=== PATIENT | female | born 1935 | race Caucasian/White ===

== ENCOUNTER → 2016-07-15 | Outpatient (CLI) | payer OTHER ==
[~2016-07-15] VITALS: Ht 152.4 cm; Wt 98.9 kg
[~2016-07-15] MED LIST: ASPIRIN81 M2 PO; ATORVASTATIN CA80 MG PO; BENICAR HCT 401 EAC1 PO; BENICAR HCT 401 EACH PO; BENICAR40 MG PO; CAL-CITRATE PL1 EACH PO; CALCIUM 500 MG1 EACH PO; CHERATUSSIN AC473 ML PO; CLOPIDOGREL75 MG PO; ENDOCET 5-3251 EACH PO; GLUCOTROL XL2.5 MG PO; IRON325 M1 PO; JANUVIA100 MG PO; LASIX20 MG PO; LIPITOR20 MG PO; MAG-AL PLUS SUS30 ML PO; METOPROLOL SUCC25 MG PO; NITROGLYCERIN0.4 MG SL; NITROSTAT0.4 MG SL; OXYCODONE-APAP1 EAC6 PO; PANTOPRAZOLE SO40 MG PO; PROTONIX40 MG PO; TOPROL XL25 MG PO; TYLENOL REGULA325 MG PO; VENTOLIN HFA18 GM IH; VOLTAREN 1% GE100 GM TP
[2016-07-15 15:23] LABS: POINT-OF-CARE METER ID UU13113694
[2016-07-15 15:31] LABS: HEMATOCRIT 36.3 % (36.0-46.0); MCHC 32.2 G/DL (30.0-36.0); MCV 93.1 FL (83-99); MEAN PLAT.VOLUME 8.8 uM^3 (9.5-12.4); PLATELET COUNT 178 K/uL (156-360); RBC DIS.WIDTH-SD 47.3 % (39-53); WHITE BLOOD COUNT 8.4 K/uL (4.1-10.2)
[2016-07-15 15:47] LABS: ANION GAP 7 MEQ/L (2-14); CHLORIDE 107 MEQ/L (99-109); POTASSIUM 4.4 MEQ/L (3.7-5.4); SAMPLE HEMOLYSIS CHECK 0; SAMPLE ICTERIC CHECK 0; SAMPLE LIPEMIA CHECK 0; SODIUM 143 MEQ/L (136-147)
[2016-07-15 15:49] LABS: PROTHROMBIN TIME 10.2 (9.2-11.2)
[2016-07-15 15:53] LABS: GFR ESTIMATE (CALCULATED) > 59 mL/min/; GLUCOSE 113 mg/dL (70-99); UREA NITROGEN (BUN) 14 mg/dL (9-23)
== END | disposition home or self-care (01) ==
LOC: AMB 14:20
PROVIDERS: Internal Medicine Pulmonary Disease
DX: R91.8 Other nonspecific abnormal finding of lung field (principal); Z87.891 Personal history of nicotine dependence; I10 Essential (primary) hypertension; K21.9 Gastro-esophageal reflux disease without esophagitis; E78.5 Hyperlipidemia, unspecified; I25.10 Atherosclerotic heart disease of native coronary artery without angina pectoris; Z80.0 Family history of malignant neoplasm of digestive organs; Z82.49 Family history of ischemic heart disease and other diseases of the circulatory system; Z80.51 Family history of malignant neoplasm of kidney
CPT/HCPCS: 71010; 76001; 80048; 82948; 85027; 85610; 85730; 87070; 87077; 87116; 87147; 87205; 87206; 88108; 88173; 93005; J0131; J1940; J2405; J2710; J2765; J3010

== ENCOUNTER → 2016-08-04 | Outpatient (CLI) | payer OTHER | END | disposition home or self-care (01) | LOC: OPR 08:43 → EDSTATUS 09:00 → OPR 09:00 | PROC: 0BB63ZX Excision of Right Lower Lobe Bronchus, Percutaneous Approach, Diagnostic (ICD-10-PCS; principal; 2016-08-04) | DX: C34.31 Malignant neoplasm of lower lobe, right bronchus or lung (principal); Z87.891 Personal history of nicotine dependence; C51.9 Malignant neoplasm of vulva, unspecified; I10 Essential (primary) hypertension; I25.10 Atherosclerotic heart disease of native coronary artery without angina pectoris; I25.2 Old myocardial infarction; K21.9 Gastro-esophageal reflux disease without esophagitis; E78.5 Hyperlipidemia, unspecified; M19.90 Unspecified osteoarthritis, unspecified site; Z68.41 Body mass index [BMI] 40.0-44.9, adult; Z79.82 Long term (current) use of aspirin; Z80.51 Family history of malignant neoplasm of kidney; Z80.0 Family history of malignant neoplasm of digestive organs; Z82.49 Family history of ischemic heart disease and other diseases of the circulatory system | CPT/HCPCS: 71010; 77012; 88305; 88341 TC; 88342 TC; J3010 ==

== ENCOUNTER 2016-08-24 07:38 | Day surgery (SDC) | payer OTHER ==
[~2016-08-24] VITALS: Ht 152.4 cm; Wt 95.7 kg
[~2016-08-24 07:38] MED LIST changes: +PLAVIX75 MG PO
[2016-08-24 08:30] VITALS: BP 149/63
[2016-08-24 08:49] VITALS: BP 149/63
[2016-08-24 09:25] LABS: POINT-OF-CARE METER ID UU14174212
[2016-08-24 10:59] LABS: POINT-OF-CARE METER ID UU13113675; POINT-OF-CARE USER ID 515036437
[2016-08-24 12:45] VITALS: BP 118/51
[2016-08-24 13:40] VITALS: BP 152/83
== END 2016-08-24 13:59 | disposition home or self-care (01) ==
LOC: SDC
PROVIDERS: Obstetrics & Gynecology Gynecologic Oncology
DX: C51.9 Malignant neoplasm of vulva, unspecified (principal); C34.31 Malignant neoplasm of lower lobe, right bronchus or lung; I10 Essential (primary) hypertension; K21.9 Gastro-esophageal reflux disease without esophagitis; E11.9 Type 2 diabetes mellitus without complications; M85.80 Other specified disorders of bone density and structure, unspecified site; E78.00 Pure hypercholesterolemia, unspecified; Z87.891 Personal history of nicotine dependence; Z79.82 Long term (current) use of aspirin; Z79.02 Long term (current) use of antithrombotics/antiplatelets; Z79.899 Other long term (current) drug therapy; Z82.49 Family history of ischemic heart disease and other diseases of the circulatory system; Z80.51 Family history of malignant neoplasm of kidney; Z80.0 Family history of malignant neoplasm of digestive organs
CPT/HCPCS: 82948; 88307; 94640; J0330; J0690; J1100; J1885; J2405; J3010

== ENCOUNTER 2016-09-16 10:35 | Day surgery (SDC) | payer OTHER ==
[~2016-09-16] VITALS: Ht 152.4 cm; Wt 96.6 kg
[2016-09-16 11:24] VITALS: BP 124/42
[2016-09-16 11:43] LABS: BASOPHIL COUNT 0.1 K/uL (0-0.1); EOSINOPHIL (%) 4.2 % (0-5); EOSINOPHIL COUNT 0.3 K/uL (0-0.3); HEMATOCRIT 36.9 % (36.0-46.0); IMMATURE GRANULOCYTE (%) 1.3 % (0.0-0.7); IMMATURE GRANULOCYTE COUNT 0.1 K/uL; INSTRUMENT ABS NEUTROPHIL CT 4.6 K/uL; LYMPHOCYTE COUNT 0.8 K/uL (1.0-2.8); MCH 30.1 PG (29.0-34.0); MCV 94.1 FL (83-99); MEAN PLAT.VOLUME 8.9 uM^3 (9.5-12.4); MONOCYTE (%) 6.1 % (3-12); MONOCYTE COUNT 0.4 K/uL (0-0.8); NEUTROPHIL (%) 74.9 % (45-76); NEUTROPHIL COUNT 4.6 K/uL (1.8-6.4); PLATELET COUNT 214 K/uL (156-360); RBC DIS.WIDTH-SD 44.9 % (39-53); RED BLOOD COUNT 3.92 M/uL (3.80-5.20); WHITE BLOOD COUNT 6.2 K/uL (4.1-10.2)
[2016-09-16 11:58] LABS: ANION GAP 11 MEQ/L (2-14); CHLORIDE 106 MEQ/L (99-109); POTASSIUM 4.4 MEQ/L (3.7-5.4); SAMPLE HEMOLYSIS CHECK 0; SAMPLE ICTERIC CHECK 0; SAMPLE LIPEMIA CHECK 0; SODIUM 141 MEQ/L (136-147); TOTAL BILIRUBIN 0.5 MG/DL (0.0-1.0)
[2016-09-16 11:59] LABS: PROTHROMBIN TIME 10.2 (9.2-11.2)
[2016-09-16 12:04] LABS: ALKALINE PHOSPHATASE 115 IU/L (3-129); GFR ESTIMATE (CALCULATED) 57 mL/min/; GLUCOSE 122 mg/dL (70-99); UREA NITROGEN (BUN) 15 mg/dL (9-23)
[2016-09-16] MEDS ORDERED: COLACE100 MG PO (14:21)
[2016-09-16] MEDS ORDERED: HYDROCODON-ACE1 EAC7 PO (14:21)
[2016-09-16 14:48] LABS: POINT-OF-CARE METER ID UU13113675
[2016-09-16 15:35] VITALS: BP 154/70
[2016-09-16 16:35] VITALS: BP 139/73
== END 2016-09-16 16:35 | disposition home or self-care (01) ==
LOC: SDC 10:35
PROVIDERS: Thoracic Surgery (Cardiothoracic Vascular Surgery)
DX: C34.90 Malignant neoplasm of unspecified part of unspecified bronchus or lung (principal); I10 Essential (primary) hypertension; E11.69 Type 2 diabetes mellitus with other specified complication; I25.10 Atherosclerotic heart disease of native coronary artery without angina pectoris; Z95.5 Presence of coronary angioplasty implant and graft; I25.2 Old myocardial infarction; Z85.44 Personal history of malignant neoplasm of other female genital organs; Z87.891 Personal history of nicotine dependence; Z85.89 Personal history of malignant neoplasm of other organs and systems; Z82.49 Family history of ischemic heart disease and other diseases of the circulatory system; Z84.1 Family history of disorders of kidney and ureter; Z80.51 Family history of malignant neoplasm of kidney
CPT/HCPCS: 80053; 82948; 85025; 85610; 86900; 86901; 87070; 87205; 88108; 88305; J0690; J1100; J1170; J2405; J2710; J2765; J3010

== ENCOUNTER 2016-09-24 05:31 | Inpatient (IN) | payer OTHER ==
[~2016-09-24] VITALS: Ht 152.4 cm; Wt 96.0 kg
[~2016-09-24 05:31] MED LIST changes: +COLACE100 MG PO; +HYDROCODON-ACE1 EAC7 PO
[2016-09-24 05:53] VITALS: BP 136/56
[2016-09-24 06:38] LABS: CHLORIDE 107 mEq/L (99-109); POTASSIUM 4.5 mEq/L (3.7-5.4); SODIUM 141 mEq/L (136-147)
[2016-09-24 06:40] LABS: GLUCOSE 155 mg/dL (70-99)
[2016-09-24 06:41] LABS: BASOPHIL COUNT 0.1 K/uL (0-0.1); EOSINOPHIL (%) 4.5 % (0-5); EOSINOPHIL COUNT 0.3 K/uL (0-0.3); HEMATOCRIT 33.8 % (36.0-46.0); IMMATURE GRANULOCYTE (%) 1.3 % (0.0-0.7); IMMATURE GRANULOCYTE COUNT 0.1 K/uL; INSTRUMENT ABS NEUTROPHIL CT 5.2 K/uL; LYMPHOCYTE COUNT 0.8 K/uL (1.0-2.8); MCH 30.2 PG (29.0-34.0); MCV 94.4 FL (83-99); MEAN PLAT.VOLUME 8.8 uM^3 (9.5-12.4); MONOCYTE (%) 6.8 % (3-12); MONOCYTE COUNT 0.5 K/uL (0-0.8); NEUTROPHIL (%) 75.3 % (45-76); NEUTROPHIL COUNT 5.2 K/uL (1.8-6.4); PLATELET COUNT 180 K/uL (156-360); RBC DIS.WIDTH-CV 12.8 % (11.8-14.6); RBC DIS.WIDTH-SD 44.2 % (39-53); RED BLOOD COUNT 3.58 M/uL (3.80-5.20)
[2016-09-24 06:42] LABS: ANION GAP 9 MEQ/L (2-14); TOTAL BILIRUBIN 0.3 mg/dL (0.0-1.0)
[2016-09-24 06:44] LABS: ALKALINE PHOSPHATASE 109 IU/L (3-129); GFR ESTIMATE (CALCULATED) > 59 mL/min/
[2016-09-24 06:45] LABS: UREA NITROGEN (BUN) 17 mg/dL (9-23)
[2016-09-24 11:25] LABS: POINT-OF-CARE METER ID UU13113675
[2016-09-24 17:52] LABS: POINT-OF-CARE METER ID UU13113675
[2016-09-24 20:46] LABS: POINT-OF-CARE METER ID UU13113803
[2016-09-24 21:32] LABS: METH RESISTANT S AUREUS PCR NEGATIVE (NEGATIVE)
[2016-09-24 21:33] LABS: PROBE CHECK PASS; SPECIMEN PROCESSING CONTROL PASS
[2016-09-25 08:00] VITALS: BP 119/50
[2016-09-25 08:02] LABS: HEMATOCRIT 27.4 % (36.0-46.0); MCH 30.5 PG (29.0-34.0); MCHC 31.8 G/DL (30.0-36.0); MCV 96.1 FL (83-99); PLATELET COUNT 166 K/uL (156-360); RBC DIS.WIDTH-CV 12.6 % (11.8-14.6); RBC DIS.WIDTH-SD 43.9 % (39-53); WHITE BLOOD COUNT 12.9 K/uL (4.1-10.2)
[2016-09-25 08:03] LABS: RED BLOOD COUNT 2.85 M/uL (3.80-5.20)
[2016-09-25 08:23] LABS: ANION GAP 8 MEQ/L (2-14); CHLORIDE 102 MEQ/L (99-109); GFR ESTIMATE (CALCULATED) 51 mL/min/; GLUCOSE 150 mg/dL (70-99); POTASSIUM 4.7 MEQ/L (3.7-5.4); SAMPLE HEMOLYSIS CHECK 0; SAMPLE ICTERIC CHECK 0; SAMPLE LIPEMIA CHECK 0; UREA NITROGEN (BUN) 22 mg/dL (9-23)
[2016-09-25 08:24] LABS: SODIUM 133 MEQ/L (136-147)
[2016-09-25 12:00] VITALS: BP 136/35
[2016-09-25 12:08] LABS: POINT-OF-CARE METER ID UU14174217
[2016-09-25 13:04] LABS: TROP-I INTERPRETATION NEGATIVE
[2016-09-25 17:00] VITALS: BP 136/41
[2016-09-25 17:00] LABS: POINT-OF-CARE METER ID UU14174217
[2016-09-25 19:00] VITALS: BP 139/45
[2016-09-25 21:00] VITALS: BP 137/47
[2016-09-25 22:17] LABS: POINT-OF-CARE METER ID UU14174217
[2016-09-25 23:00] VITALS: BP 135/51
[2016-09-26] VITALS (8 sets, daily range): BP systolic 127–156; BP diastolic 42–55
[2016-09-26 05:23] LABS: HEMATOCRIT 28.9 % (36.0-46.0); MCH 29.1 PG (29.0-34.0); MCHC 30.4 G/DL (30.0-36.0); MCV 95.7 FL (83-99); MEAN PLAT.VOLUME 9.1 uM^3 (9.5-12.4); PLATELET COUNT 179 K/uL (156-360); RBC DIS.WIDTH-CV 12.8 % (11.8-14.6); RBC DIS.WIDTH-SD 44.5 % (39-53); RED BLOOD COUNT 3.02 M/uL (3.80-5.20); WHITE BLOOD COUNT 11.2 K/uL (4.1-10.2)
[2016-09-26 08:15] LABS: POINT-OF-CARE METER ID UU13113748
[2016-09-26 11:15] LABS: POINT-OF-CARE METER ID UU13113748
[2016-09-27] VITALS (16 sets, daily range): BP systolic 103–157; BP diastolic 32–63
[2016-09-27 05:16] LABS: HEMATOCRIT 25.8 % (36.0-46.0); MCH 30.4 PG (29.0-34.0); MCHC 32.6 G/DL (30.0-36.0); MCV 93.5 FL (83-99); MEAN PLAT.VOLUME 9.3 uM^3 (9.5-12.4); PLATELET COUNT 187 K/uL (156-360); RBC DIS.WIDTH-CV 12.9 % (11.8-14.6); RBC DIS.WIDTH-SD 43.8 % (39-53); RED BLOOD COUNT 2.76 M/uL (3.80-5.20); WHITE BLOOD COUNT 10.1 K/uL (4.1-10.2)
[2016-09-27 06:04] LABS: ANION GAP 4 MEQ/L (2-14); CHLORIDE 103 MEQ/L (99-109); GFR ESTIMATE (CALCULATED) > 59 mL/min/; GLUCOSE 127 mg/dL (70-99); POTASSIUM 4.8 MEQ/L (3.7-5.4); SAMPLE HEMOLYSIS CHECK 0; SAMPLE ICTERIC CHECK 0; SAMPLE LIPEMIA CHECK 0; SODIUM 138 MEQ/L (136-147); UREA NITROGEN (BUN) 18 mg/dL (9-23)
[2016-09-27 07:51] LABS: POINT-OF-CARE USER ID 606021424
[2016-09-28] VITALS (17 sets, daily range): BP systolic 0–145; BP diastolic 0–66
[2016-09-28 09:04] LABS: POINT-OF-CARE METER ID UU14162636; POINT-OF-CARE USER ID 612031313
[2016-09-28 12:26] LABS: POINT-OF-CARE METER ID UU14162636; POINT-OF-CARE USER ID 612031313
[2016-09-28 18:06] LABS: POINT-OF-CARE METER ID UU13113803; POINT-OF-CARE USER ID 612031313
[2016-09-28 23:22] LABS: POINT-OF-CARE METER ID UU13113731
[2016-09-29] VITALS (18 sets, daily range): BP systolic 61–143; BP diastolic 31–57
[2016-09-29 09:30] LABS: POINT-OF-CARE METER ID UU14174217
[2016-09-29 13:17] LABS: POINT-OF-CARE METER ID UU13113731
[2016-09-29] MEDS ORDERED: DOCUSATE SODIU100 MG PO (18:13)
[2016-09-29] MEDS ORDERED: DIGOXIN125 MCG PO (18:13)
[2016-09-29 18:41] LABS: POINT-OF-CARE METER ID UU14174217
[2016-09-29 23:23] LABS: POINT-OF-CARE METER ID UU14162636
[2016-09-30] VITALS (10 sets, daily range): BP systolic 113–171; BP diastolic 37–64
[2016-09-30 05:59] LABS: ANION GAP 7 MEQ/L (2-14); CHLORIDE 103 MEQ/L (99-109); GFR ESTIMATE (CALCULATED) > 59 mL/min/; GLUCOSE 119 mg/dL (70-99); POTASSIUM 4.3 MEQ/L (3.7-5.4); SAMPLE HEMOLYSIS CHECK 1; SAMPLE ICTERIC CHECK 0; SAMPLE LIPEMIA CHECK 0; SODIUM 139 MEQ/L (136-147); UREA NITROGEN (BUN) 24 mg/dL (9-23)
[2016-09-30 06:09] LABS: HEMATOCRIT 25.8 % (36.0-46.0); MCH 30.4 PG (29.0-34.0); MCHC 32.6 G/DL (30.0-36.0); MCV 93.5 FL (83-99); MEAN PLAT.VOLUME 8.6 uM^3 (9.5-12.4); RBC DIS.WIDTH-SD 44.3 % (39-53); RED BLOOD COUNT 2.76 M/uL (3.80-5.20); WHITE BLOOD COUNT 10.5 K/uL (4.1-10.2)
[2016-09-30 06:10] LABS: PLATELET COUNT 260 K/uL (156-360)
== END 2016-09-30 16:38 | disposition home health service (06) | DRG 164 ==
LOC: 2SOUTH 05:31 → 4WEST 05:31 → EDSTATUS 09:05 → 2SOUTH 09:06 → SDC 14:31 → 4WEST 19:08
PROVIDERS: Surgery; Thoracic Surgery (Cardiothoracic Vascular Surgery)
DX: C34.31 Malignant neoplasm of lower lobe, right bronchus or lung (principal); Z68.41 Body mass index [BMI] 40.0-44.9, adult; E11.9 Type 2 diabetes mellitus without complications; D72.829 Elevated white blood cell count, unspecified; E78.5 Hyperlipidemia, unspecified; E66.9 Obesity, unspecified
CPT/HCPCS: 71010; 71020; 80048; 80053; 82948; 83735; 84100; 84484; 85025; 85027; 85610; 86900; 86901; 86920; 87641; 88300; 88305; 88309; 88313; 93005; 94002; 94640; 94640 76; 94667; 94668; 94760; 94799; 97530 GO; 97530 GP; 99202; J0131; J0690; J1100; J1160; J1200; J1644; J1815; J1885; J2250; J2405; J2710; J2765; J3010; J7040; J7050; J7120; P9045; S0020

== ENCOUNTER 2017-03-04 04:58 | Inpatient (IN) | payer OTHER ==
[~2017-03-04] VITALS: Ht 152.4 cm; Wt 94.9 kg
[~2017-03-04 04:58] MED LIST changes: +DIGOXIN125 MCG PO; +DOCUSATE SODIU100 MG PO
[2017-03-04 05:56] LABS: HEMATOCRIT 30.7 % (36.0-46.0); MCH 26.4 PG (29.0-34.0); MCHC 30.3 G/DL (30.0-36.0); MCV 87.2 FL (83-99); MEAN PLAT.VOLUME 8.9 uM^3 (9.5-12.4); PLATELET COUNT 224 K/uL (156-360); RBC DIS.WIDTH-CV 15.7 % (11.8-14.6); RBC DIS.WIDTH-SD 49.3 % (39-53); RED BLOOD COUNT 3.52 M/uL (3.80-5.20); WHITE BLOOD COUNT 7.5 K/uL (4.1-10.2)
[2017-03-04 06:06] LABS: ANION GAP 8 MEQ/L (2-14); CHLORIDE 111 MEQ/L (99-109); POTASSIUM 4.2 MEQ/L (3.7-5.4); SAMPLE HEMOLYSIS CHECK 0; SAMPLE ICTERIC CHECK 0; SAMPLE LIPEMIA CHECK 0; SODIUM 144 MEQ/L (136-147)
[2017-03-04 06:09] LABS: TOTAL BILIRUBIN 0.3 MG/DL (0.0-1.0)
[2017-03-04 06:11] LABS: ALKALINE PHOSPHATASE 97 IU/L (3-129); GFR ESTIMATE (CALCULATED) 56 mL/min/; GLUCOSE 108 mg/dL (70-99); UREA NITROGEN (BUN) 22 mg/dL (9-23)
[2017-03-04 07:36] LABS: HEMATOCRIT 30.1 % (36.0-46.0); MCV 86.7 FL (83-99)
[2017-03-04] MEDS ORDERED: CALCIUM 600 +1 EAC9 PO (08:55)
[2017-03-04] MEDS ORDERED: CLOTRIMAZOLE-BE15 GM TP (08:58)
[2017-03-04] MEDS ORDERED: TIZANIDINE HCL4 MG PO (08:58)
[2017-03-04 10:50] VITALS: BP 175/70
[2017-03-04 15:20] VITALS: BP 169/66
[2017-03-04 16:44] LABS: POINT-OF-CARE METER ID UU14314084
[2017-03-04 19:40] VITALS: BP 137/61
[2017-03-04 23:15] VITALS: BP 110/53
[2017-03-05 02:40] LABS: POINT-OF-CARE METER ID UU14162508
[2017-03-05 03:03] VITALS: BP 115/59
[2017-03-05 05:34] LABS: POINT-OF-CARE METER ID UU14162508
[2017-03-05 06:18] LABS: HEMATOCRIT 28.6 % (36.0-46.0); MCH 26.7 PG (29.0-34.0); MCHC 30.1 G/DL (30.0-36.0); MCV 88.8 FL (83-99); MEAN PLAT.VOLUME 9.3 uM^3 (9.5-12.4); PLATELET COUNT 185 K/uL (156-360); RBC DIS.WIDTH-CV 15.6 % (11.8-14.6); RBC DIS.WIDTH-SD 50.5 % (39-53); RED BLOOD COUNT 3.22 M/uL (3.80-5.20); WHITE BLOOD COUNT 5.8 K/uL (4.1-10.2)
[2017-03-05 06:20] LABS: PROTHROMBIN TIME 11.9 SEC (10.2-12.9)
[2017-03-05 06:23] LABS: PTT 28.8 SEC (25-37)
[2017-03-05 07:08] LABS: ALKALINE PHOSPHATASE 86 IU/L (3-129); ANION GAP 6 MEQ/L (2-14); CHLORIDE 108 MEQ/L (99-109); GFR ESTIMATE (CALCULATED) 51 mL/min/; GLUCOSE 122 mg/dL (70-99); POTASSIUM 4.5 MEQ/L (3.7-5.4); SAMPLE HEMOLYSIS CHECK 0; SAMPLE ICTERIC CHECK 0; SAMPLE LIPEMIA CHECK 0; SODIUM 141 MEQ/L (136-147); UREA NITROGEN (BUN) 16 mg/dL (9-23)
[2017-03-05 07:10] LABS: TOTAL BILIRUBIN 0.2 MG/DL (0.0-1.0)
[2017-03-05 07:57] VITALS: BP 127/58
[2017-03-05 11:51] VITALS: BP 125/56
[2017-03-05 11:51] LABS: POINT-OF-CARE METER ID UU14208750
[2017-03-05 17:15] VITALS: BP 141/66
[2017-03-05 17:20] LABS: POINT-OF-CARE METER ID UU14208750
[2017-03-05 19:51] VITALS: BP 119/66
[2017-03-06 00:06] VITALS: BP 123/53
[2017-03-06 00:14] LABS: POINT-OF-CARE METER ID UU14208750
[2017-03-06 06:04] LABS: POINT-OF-CARE METER ID UU14208750
[2017-03-06 06:40] LABS: HEMATOCRIT 28.4 % (36.0-46.0); MCHC 30.3 G/DL (30.0-36.0); MCV 89.3 FL (83-99); MEAN PLAT.VOLUME 9.2 uM^3 (9.5-12.4); PLATELET COUNT 186 K/uL (156-360); RBC DIS.WIDTH-CV 15.5 % (11.8-14.6); RBC DIS.WIDTH-SD 50.9 % (39-53); RED BLOOD COUNT 3.18 M/uL (3.80-5.20); WHITE BLOOD COUNT 6.4 K/uL (4.1-10.2)
[2017-03-06 07:06] LABS: ANION GAP 8 MEQ/L (2-14); CHLORIDE 106 MEQ/L (99-109); GFR ESTIMATE (CALCULATED) 51 mL/min/; GLUCOSE 127 mg/dL (70-99); POTASSIUM 4.8 MEQ/L (3.7-5.4); SAMPLE HEMOLYSIS CHECK 0; SAMPLE ICTERIC CHECK 0; SAMPLE LIPEMIA CHECK 0; SODIUM 141 MEQ/L (136-147); UREA NITROGEN (BUN) 22 mg/dL (9-23)
[2017-03-06 07:28] VITALS: BP 147/65
[2017-03-06 12:04] LABS: POINT-OF-CARE METER ID UU14208750
[2017-03-06 15:29] VITALS: BP 121/56
[2017-03-06 16:40] LABS: POINT-OF-CARE METER ID UU14162508
[2017-03-07] VITALS (14 sets, daily range): BP systolic 97–159; BP diastolic 48–78
[2017-03-07 00:55] LABS: POINT-OF-CARE METER ID UU14208750
[2017-03-07 05:43] LABS: POINT-OF-CARE METER ID UU14208750
[2017-03-07 06:29] LABS: HEMATOCRIT 28.6 % (36.0-46.0); MCH 26.5 PG (29.0-34.0); MCHC 30.1 G/DL (30.0-36.0); MCV 88.3 FL (83-99); PLATELET COUNT 186 K/uL (156-360); RBC DIS.WIDTH-CV 15.6 % (11.8-14.6); RED BLOOD COUNT 3.24 M/uL (3.80-5.20); WHITE BLOOD COUNT 6.8 K/uL (4.1-10.2)
[2017-03-07 06:46] LABS: ANION GAP 7 MEQ/L (2-14); CHLORIDE 106 MEQ/L (99-109); GFR ESTIMATE (CALCULATED) 46 mL/min/; GLUCOSE 105 mg/dL (70-99); SAMPLE HEMOLYSIS CHECK 1; SAMPLE ICTERIC CHECK 0; SAMPLE LIPEMIA CHECK 0; SODIUM 141 MEQ/L (136-147); UREA NITROGEN (BUN) 24 mg/dL (9-23)
[2017-03-07 12:34] LABS: POINT-OF-CARE METER ID UU14162508
[2017-03-07 16:08] LABS: HEMATOCRIT 31.8 % (36.0-46.0); MCH 27.9 PG (29.0-34.0); MCHC 31.8 G/DL (30.0-36.0); MCV 87.8 FL (83-99); MEAN PLAT.VOLUME 8.8 uM^3 (9.5-12.4); PLATELET COUNT 195 K/uL (156-360); RBC DIS.WIDTH-CV 15.2 % (11.8-14.6); RBC DIS.WIDTH-SD 48.7 % (39-53); RED BLOOD COUNT 3.62 M/uL (3.80-5.20); WHITE BLOOD COUNT 9.2 K/uL (4.1-10.2)
[2017-03-07 16:34] LABS: ANION GAP 8 MEQ/L (2-14); CHLORIDE 104 MEQ/L (99-109); GFR ESTIMATE (CALCULATED) 42 mL/min/; POTASSIUM 4.5 MEQ/L (3.7-5.4); SAMPLE HEMOLYSIS CHECK 0; SAMPLE ICTERIC CHECK 0; SAMPLE LIPEMIA CHECK 0; SODIUM 140 MEQ/L (136-147); UREA NITROGEN (BUN) 24 mg/dL (9-23)
[2017-03-07 16:35] LABS: GLUCOSE 74 mg/dL (70-99)
[2017-03-07 23:43] LABS: POINT-OF-CARE METER ID UU14162508
[2017-03-08 03:49] VITALS: BP 147/62
[2017-03-08 05:41] LABS: POINT-OF-CARE METER ID UU14208750
[2017-03-08 06:05] LABS: HEMATOCRIT 34.3 % (36.0-46.0); MCH 27.4 PG (29.0-34.0); MCHC 31.2 G/DL (30.0-36.0); MCV 87.7 FL (83-99); PLATELET COUNT 181 K/uL (156-360); RBC DIS.WIDTH-CV 14.9 % (11.8-14.6); RBC DIS.WIDTH-SD 48.1 % (39-53); RED BLOOD COUNT 3.91 M/uL (3.80-5.20); WHITE BLOOD COUNT 8.2 K/uL (4.1-10.2)
[2017-03-08 06:31] LABS: ANION GAP 6 MEQ/L (2-14); CHLORIDE 105 MEQ/L (99-109); GFR ESTIMATE (CALCULATED) 42 mL/min/; POTASSIUM 4.8 MEQ/L (3.7-5.4); SAMPLE HEMOLYSIS CHECK 0; SAMPLE ICTERIC CHECK 0; SAMPLE LIPEMIA CHECK 0; SODIUM 140 MEQ/L (136-147); UREA NITROGEN (BUN) 27 mg/dL (9-23)
[2017-03-08 06:32] LABS: GLUCOSE 120 mg/dL (70-99)
[2017-03-08 07:31] VITALS: BP 139/64
[2017-03-08 11:56] LABS: POINT-OF-CARE METER ID UU14162508
[2017-03-08 12:27] VITALS: BP 132/61
== END 2017-03-08 12:49 | disposition home or self-care (01) | DRG 746 ==
LOC: EME 04:58 → 2EAST 07:50 → EDOF 07:50 → ENRESERV 08:02 → EDOF 08:13 → ENRESERV 09:50 → 2EAST 10:37
PROVIDERS: Emergency Medicine Emergency Medical Services; Nurse Practitioner Acute Care; Obstetrics & Gynecology Gynecologic Oncology
DX: C51.9 Malignant neoplasm of vulva, unspecified (principal); Z68.41 Body mass index [BMI] 40.0-44.9, adult; E66.9 Obesity, unspecified; E11.9 Type 2 diabetes mellitus without complications; I25.2 Old myocardial infarction; I10 Essential (primary) hypertension; D64.9 Anemia, unspecified; Z95.5 Presence of coronary angioplasty implant and graft; Z85.118 Personal history of other malignant neoplasm of bronchus and lung; Z87.891 Personal history of nicotine dependence
CPT/HCPCS: 80048; 80048 91; 80053; 81003; 82948; 85014; 85018; 85027; 85610; 85730; 86850; 86900; 86901; 86920; 88307; 94760; 99202; 99281; 99285; J0330; J0690; J1815; J1885; J2405; J3010; J7030; P9016; Q0177

== ENCOUNTER → 2017-04-18 | Outpatient (CLI) | payer OTHER ==
[~2017-04-18] MED LIST changes: +CALCIUM 600 +1 EAC9 PO; +CLOTRIMAZOLE-BE15 GM TP; +TIZANIDINE HCL4 MG PO
[2017-04-18 09:26] LABS: INTER. NORMALIZED RATIO 1.1
[2017-04-18 09:29] LABS: PTT 30.3 SEC (25-37)
== END | disposition home or self-care (01) ==
LOC: OPR 04-13 10:00 → EDSTATUS 09:00 → OPR 04-20 09:00
PROVIDERS: Internal Medicine Hematology & Oncology
PROC: 0FB13ZX Excision of Right Lobe Liver, Percutaneous Approach, Diagnostic (ICD-10-PCS; principal; 2017-04-18)
DX: C78.7 Secondary malignant neoplasm of liver and intrahepatic bile duct (principal); Z85.118 Personal history of other malignant neoplasm of bronchus and lung; Z87.891 Personal history of nicotine dependence
CPT/HCPCS: 74176; 77012; 85610; 85730; 88307; 88341 TC; 88342 TC; J3010

== ENCOUNTER 2017-05-31 15:51 | Emergency (ER) | payer OTHER ==
[~2017-05-31] VITALS: Ht 154.9 cm; Wt 94.4 kg
[~2017-05-31 15:51] MED LIST changes: -ASPIRIN81 M2 PO; +COMPAZINE10 MG PO; +FLEXERIL5 MG PO; +LO-DOSE ASPIRIN81 M1 PO; +OXYCODONE HCL10 MG PO
[2017-05-31 16:17] LABS: HEMOGLOBIN 11.1 G/DL (11.9-15.5); MCH 28.9 PG (29.0-34.0); MCHC 32.6 G/DL (30.0-36.0); MCV 88.5 FL (83-99); PLATELET COUNT 175 K/uL (156-360); RBC DIS.WIDTH-CV 14.1 % (11.8-14.6); RBC DIS.WIDTH-SD 44.8 % (39-53); RED BLOOD COUNT 3.84 M/uL (3.80-5.20); WHITE BLOOD COUNT 8.4 K/uL (4.1-10.2)
[2017-05-31 16:29] LABS: CHLORIDE 105 mEq/L (99-109); POTASSIUM 4.9 mEq/L (3.7-5.4); SODIUM 138 mEq/L (136-147)
[2017-05-31 16:31] LABS: GLUCOSE 163 mg/dL (70-99)
[2017-05-31 16:33] LABS: TOTAL BILIRUBIN 0.7 mg/dL (0.0-1.0)
[2017-05-31 16:35] LABS: ALKALINE PHOSPHATASE 95 IU/L (3-129); GFR ESTIMATE (CALCULATED) 56 mL/min/
[2017-05-31 16:36] LABS: UREA NITROGEN (BUN) 15 mg/dL (9-23)
[2017-05-31 16:37] LABS: AST (GOT) 15 IU/L (2-34)
[2017-05-31 16:38] LABS: ALT (GPT) 16 IU/L (3-49)
[2017-05-31 18:59] LABS: LIPASE 11 U/L (1.0-51.0)
[2017-05-31 19:14] LABS: APPEARANCE CLOUDY ((CLEAR)); BILIRUBIN NEGATIVE; BLOOD SMALL; GLUCOSE (STRIP) NEGATIVE; KETONES NEGATIVE; LEUKOCYTES LARGE; NITRITE POSITIVE; PROTEIN (STRIP) 100; SPECIFIC GRAVITY 1.018 (1.000-1.030); UROBILINOGEN 0.2 MG/DL (0.2-1.0)
[2017-05-31 19:30] LABS: COLOR YELLOW ((YELLOW))
[2017-05-31 20:10] LABS: EPITHELIAL CELLS 2+ /HPF; RED BLOOD CELLS 0-5 /HPF (0-5); WHITE BLOOD CELLS 40-50 /HPF (0-5)
[2017-05-31 20:11] LABS: BACTERIA 2+ /HPF; MUCUS NONE SEEN /LPF; UCUL ADDED? YES
[2017-05-31 20:12] LABS: HYALINE CASTS 0-5 /LPF
[2017-05-31] MEDS ORDERED: ZOFRAN ODT8 MG PO (21:10)
[2017-05-31] MEDS ORDERED: KEFLEX500 MG PO (21:10)
[2017-05-31] MEDS ORDERED: MOTRIN600 MG PO (21:10)
[2017-05-31 21:33] VITALS: BP 137/64
[2017-06-01] MEDS ORDERED: OMEPRAZOLE40 M1 PO (17:23)
[2017-06-01] MEDS ORDERED: DULERA 200 MCG/13 GM IH (17:24)
== END 2017-05-31 21:36 | disposition home or self-care (01) ==
LOC: EME 15:51
DX: N39.0 Urinary tract infection, site not specified (principal); R11.2 Nausea with vomiting, unspecified; C22.9 Malignant neoplasm of liver, not specified as primary or secondary; Z79.899 Other long term (current) drug therapy; Z85.44 Personal history of malignant neoplasm of other female genital organs; I25.2 Old myocardial infarction; Z95.5 Presence of coronary angioplasty implant and graft; Z87.891 Personal history of nicotine dependence; Z86.73 Personal history of transient ischemic attack (TIA), and cerebral infarction without residual deficits; Z79.82 Long term (current) use of aspirin; Z91.041 Radiographic dye allergy status
CPT/HCPCS: 74176; 80053; 81003; 83605; 83690; 85027; 87040; 87077; 87086; 87186; 87801; 99281; 99284; J0696; J3010; J7120

== ENCOUNTER 2017-06-01 16:08 | Inpatient (IN) | payer OTHER ==
[~2017-06-01] VITALS: Ht 152.4 cm; Wt 94.2 kg
[~2017-06-01 16:08] MED LIST changes: +KEFLEX500 MG PO; +MOTRIN600 MG PO; +ZOFRAN ODT8 MG PO
[2017-06-01 17:15] LABS: BASOPHIL (%) 0.8 % (0-1); EOSINOPHIL (%) 1.4 % (0-5); EOSINOPHIL COUNT 0.1 K/uL (0-0.3); HEMATOCRIT 30.3 % (36.0-46.0); HEMOGLOBIN 9.8 G/DL (11.9-15.5); IMMATURE GRANULOCYTE (%) 1.2 % (0.0-0.7); LYMPHOCYTE (%) 4.9 % (15-42); LYMPHOCYTE COUNT 0.2 K/uL (1.0-2.8); MCHC 32.3 G/DL (30.0-36.0); MCV 89.6 FL (83-99); MONOCYTE (%) 7.3 % (3-12); MONOCYTE COUNT 0.4 K/uL (0-0.8); NEUTROPHIL (%) 84.4 % (45-76); NEUTROPHIL COUNT 4.2 K/uL (1.8-6.4); PLATELET COUNT 152 K/uL (156-360); RBC DIS.WIDTH-CV 14.4 % (11.8-14.6); RBC DIS.WIDTH-SD 45.2 % (39-53); RED BLOOD COUNT 3.38 M/uL (3.80-5.20); WHITE BLOOD COUNT 4.9 K/uL (4.1-10.2)
[2017-06-01 17:23] LABS: CHLORIDE 105 mEq/L (99-109); SODIUM 137 mEq/L (136-147)
[2017-06-01] MEDS ORDERED: OMEPRAZOLE40 M1 PO (17:23)
[2017-06-01] MEDS ORDERED: DULERA 200 MCG/13 GM IH (17:24)
[2017-06-01 17:25] LABS: GLUCOSE 178 mg/dL (70-99)
[2017-06-01 17:28] LABS: CREATININE 1.1 mg/dL (0.6-1.3); GFR ESTIMATE (CALCULATED) 51 mL/min/
[2017-06-01 17:29] LABS: UREA NITROGEN (BUN) 20 mg/dL (9-23)
[2017-06-01 20:30] VITALS: BP 127/61
[2017-06-02] VITALS (7 sets, daily range): BP systolic 110–141; BP diastolic 56–87
[2017-06-03 03:50] VITALS: BP 136/64
[2017-06-03 07:23] VITALS: BP 145/65
[2017-06-03 11:00] LABS: HEMATOCRIT 27.6 % (36.0-46.0); HEMOGLOBIN 8.7 G/DL (11.9-15.5); MCH 28.7 PG (29.0-34.0); MCHC 31.5 G/DL (30.0-36.0); MCV 91.1 FL (83-99); PLATELET COUNT 131 K/uL (156-360); RBC DIS.WIDTH-CV 14.6 % (11.8-14.6); RBC DIS.WIDTH-SD 47.8 % (39-53); RED BLOOD COUNT 3.03 M/uL (3.80-5.20); WHITE BLOOD COUNT 2.6 K/uL (4.1-10.2)
[2017-06-03 11:31] LABS: CHLORIDE 107 MEQ/L (99-109); CREATININE 0.7 MG/DL (0.6-1.3); GFR ESTIMATE (CALCULATED) > 59 mL/min/; GLUCOSE 148 mg/dL (70-99); SODIUM 137 MEQ/L (136-147); UREA NITROGEN (BUN) 9 mg/dL (9-23)
[2017-06-03 11:38] VITALS: BP 127/59
[2017-06-03 13:31] LABS: ALBUMIN 3.1 G/DL (3.2-4.8); ALKALINE PHOSPHATASE 57 IU/L (3-129); ALT (GPT) 11 IU/L (3-49); AST (GOT) 12 IU/L (2-34); PHOSPHORUS 1.7 mg/dL (2.5-4.9); TOTAL BILIRUBIN 0.2 MG/DL (0.0-1.0); TOTAL PROTEIN 5.1 G/DL (6.4-8.3)
[2017-06-03 14:37] LABS: INTACT PARATHYROID HORMONE 441 pg/mL (10-69)
[2017-06-03 15:44] VITALS: BP 127/60
[2017-06-03 20:21] VITALS: BP 142/65
[2017-06-03 20:21] LABS: STOOL OCCULT BLD 1ST SPECIMEN NEGATIVE
[2017-06-04 00:28] VITALS: BP 115/57
[2017-06-04 07:11] VITALS: BP 125/57
[2017-06-04 07:48] LABS: HEMOGLOBIN 8.7 G/DL (11.9-15.5); MCH 29.2 PG (29.0-34.0); MCHC 32.2 G/DL (30.0-36.0); MCV 90.6 FL (83-99); PLATELET COUNT 149 K/uL (156-360); RBC DIS.WIDTH-CV 14.6 % (11.8-14.6); RBC DIS.WIDTH-SD 46.8 % (39-53); RED BLOOD COUNT 2.98 M/uL (3.80-5.20); WHITE BLOOD COUNT 2.4 K/uL (4.1-10.2)
[2017-06-04 08:13] LABS: CHLORIDE 107 MEQ/L (99-109); CREATININE 0.8 MG/DL (0.6-1.3); GFR ESTIMATE (CALCULATED) > 59 mL/min/; GLUCOSE 159 mg/dL (70-99); POTASSIUM 4.4 MEQ/L (3.7-5.4); SODIUM 139 MEQ/L (136-147); UREA NITROGEN (BUN) 8 mg/dL (9-23)
== END 2017-06-04 15:13 | disposition home or self-care (01) | DRG 690 ==
LOC: EME 16:08 → 2EASTP 17:45 → EDOF 17:45 → ENRESERV 18:20 → 2EASTP 19:54 → ENPENDDIS 06-04 → 2EASTP 06-04 15:13
PROVIDERS: Emergency Medicine; Family Medicine; Internal Medicine
DX: N39.0 Urinary tract infection, site not specified (principal); C78.7 Secondary malignant neoplasm of liver and intrahepatic bile duct; C78.01 Secondary malignant neoplasm of right lung; C51.9 Malignant neoplasm of vulva, unspecified; Z96.653 Presence of artificial knee joint, bilateral; Z96.643 Presence of artificial hip joint, bilateral; E66.01 Morbid (severe) obesity due to excess calories; Z68.41 Body mass index [BMI] 40.0-44.9, adult; I10 Essential (primary) hypertension; K21.9 Gastro-esophageal reflux disease without esophagitis; G89.4 Chronic pain syndrome; I25.10 Atherosclerotic heart disease of native coronary artery without angina pectoris; Z95.5 Presence of coronary angioplasty implant and graft; Z92.3 Personal history of irradiation; Z87.891 Personal history of nicotine dependence; E78.5 Hyperlipidemia, unspecified; G47.00 Insomnia, unspecified; I25.2 Old myocardial infarction; M19.90 Unspecified osteoarthritis, unspecified site; E11.51 Type 2 diabetes mellitus with diabetic peripheral angiopathy without gangrene; Z79.02 Long term (current) use of antithrombotics/antiplatelets; Z79.82 Long term (current) use of aspirin
CPT/HCPCS: 74176; 76705; 80048; 80053; 81003; 82272; 82948; 83605; 83690; 83970; 84100; 85025 91; 85027; 87040; 87077; 87086; 87186; 87801; 99281; 99284; 99285; J0610; J0692; J0696; J1644; J1956; J3010; J7050; J7120

== ENCOUNTER 2017-07-20 08:03 | Inpatient (IN) | payer OTHER ==
[~2017-07-20] VITALS: Ht 152.4 cm; Wt 93.0 kg
[~2017-07-20 08:03] MED LIST changes: +DULERA 200 MCG/13 GM IH; +OMEPRAZOLE40 M1 PO
[2017-07-20] MEDS ORDERED: SLEEP AID25 M1 PO (08:45)
[2017-07-20 09:16] VITALS: BP 138/61
[2017-07-20 13:51] VITALS: BP 126/60
[2017-07-20 17:00] VITALS: BP 115/53
[2017-07-20 19:20] VITALS: BP 105/52
[2017-07-20 21:01] LABS: HEMATOCRIT 27.3 % (36.0-46.0); HEMOGLOBIN 8.6 G/DL (11.9-15.5); MCH 29.2 PG (29.0-34.0); MCHC 31.5 G/DL (30.0-36.0); MCV 92.5 FL (83-99); PLATELET COUNT 104 K/uL (156-360); RBC DIS.WIDTH-CV 16.1 % (11.8-14.6); RBC DIS.WIDTH-SD 54.2 % (39-53); RED BLOOD COUNT 2.95 M/uL (3.80-5.20); WHITE BLOOD COUNT 5.8 K/uL (4.1-10.2)
[2017-07-20 21:23] LABS: CHLORIDE 105 MEQ/L (99-109); CREATININE 0.9 MG/DL (0.6-1.3); GFR ESTIMATE (CALCULATED) > 59 mL/min/; GLUCOSE 239 mg/dL (70-99); POTASSIUM 4.6 MEQ/L (3.7-5.4); SODIUM 138 MEQ/L (136-147); UREA NITROGEN (BUN) 14 mg/dL (9-23)
[2017-07-21 00:05] VITALS: BP 120/57
[2017-07-21 04:15] VITALS: BP 129/60
[2017-07-21 06:57] LABS: HEMATOCRIT 26.2 % (36.0-46.0); HEMOGLOBIN 8.3 G/DL (11.9-15.5); MCH 29.6 PG (29.0-34.0); MCHC 31.7 G/DL (30.0-36.0); MCV 93.6 FL (83-99); PLATELET COUNT 100 K/uL (156-360); RBC DIS.WIDTH-SD 54.6 % (39-53); WHITE BLOOD COUNT 5.5 K/uL (4.1-10.2)
[2017-07-21 07:09] VITALS: BP 149/59
[2017-07-21 07:19] LABS: CHLORIDE 104 MEQ/L (99-109); CREATININE 0.9 MG/DL (0.6-1.3); GFR ESTIMATE (CALCULATED) > 59 mL/min/; GLUCOSE 132 mg/dL (70-99); POTASSIUM 4.5 MEQ/L (3.7-5.4); SODIUM 140 MEQ/L (136-147); UREA NITROGEN (BUN) 16 mg/dL (9-23)
[2017-07-21 11:40] VITALS: BP 128/56
[2017-07-21 15:45] VITALS: BP 106/55
[2017-07-22 00:10] VITALS: BP 130/61
[2017-07-22 06:11] LABS: HEMATOCRIT 27.6 % (36.0-46.0); HEMOGLOBIN 8.7 G/DL (11.9-15.5); MCH 29.8 PG (29.0-34.0); MCHC 31.5 G/DL (30.0-36.0); MCV 94.5 FL (83-99); PLATELET COUNT 94 K/uL (156-360); RBC DIS.WIDTH-CV 16.8 % (11.8-14.6); RBC DIS.WIDTH-SD 57.9 % (39-53); RED BLOOD COUNT 2.92 M/uL (3.80-5.20); WHITE BLOOD COUNT 5.1 K/uL (4.1-10.2)
[2017-07-22 06:34] LABS: CHLORIDE 106 MEQ/L (99-109); CREATININE 1.1 MG/DL (0.6-1.3); GFR ESTIMATE (CALCULATED) 51 mL/min/; GLUCOSE 116 mg/dL (70-99); POTASSIUM 4.3 MEQ/L (3.7-5.4); SODIUM 141 MEQ/L (136-147); UREA NITROGEN (BUN) 16 mg/dL (9-23)
[2017-07-22 07:28] VITALS: BP 103/55
[2017-07-22 16:04] VITALS: BP 143/67
[2017-07-22 18:55] VITALS: BP 130/59
[2017-07-23] VITALS: BP 142/62
[2017-07-23 03:40] VITALS: BP 148/70
[2017-07-23 06:14] LABS: HEMATOCRIT 28.7 % (36.0-46.0); HEMOGLOBIN 9.1 G/DL (11.9-15.5); MCH 29.5 PG (29.0-34.0); MCHC 31.7 G/DL (30.0-36.0); MCV 93.2 FL (83-99); PLATELET COUNT 106 K/uL (156-360); RBC DIS.WIDTH-CV 16.4 % (11.8-14.6); RBC DIS.WIDTH-SD 55.9 % (39-53); RED BLOOD COUNT 3.08 M/uL (3.80-5.20); WHITE BLOOD COUNT 6.1 K/uL (4.1-10.2)
[2017-07-23 06:30] LABS: CHLORIDE 105 MEQ/L (99-109); CREATININE 0.7 MG/DL (0.6-1.3); GFR ESTIMATE (CALCULATED) > 59 mL/min/; GLUCOSE 138 mg/dL (70-99); SODIUM 140 MEQ/L (136-147); UREA NITROGEN (BUN) 11 mg/dL (9-23)
[2017-07-23 06:40] LABS: POTASSIUM 5.3 MEQ/L (3.7-5.4)
[2017-07-23 07:31] VITALS: BP 167/72
== END 2017-07-23 11:21 | disposition home or self-care (01) | DRG 746 ==
LOC: SDC → 2SOUTH 12:00 → ENRESERV 12:03 → SDC 12:52 → 2EASTP 13:29 → SDC 15:17 → 2EASTP 07-23 11:21
PROVIDERS: Nurse Practitioner Acute Care; Obstetrics & Gynecology Gynecologic Oncology
PROC: 0UBMXZZ Excision of Vulva, External Approach (ICD-10-PCS; principal; 2017-07-20)
DX: C51.9 Malignant neoplasm of vulva, unspecified (principal); C79.51 Secondary malignant neoplasm of bone; C78.7 Secondary malignant neoplasm of liver and intrahepatic bile duct; C34.31 Malignant neoplasm of lower lobe, right bronchus or lung; Z68.41 Body mass index [BMI] 40.0-44.9, adult; R04.2 Hemoptysis; E66.01 Morbid (severe) obesity due to excess calories; E78.5 Hyperlipidemia, unspecified; I10 Essential (primary) hypertension; I25.10 Atherosclerotic heart disease of native coronary artery without angina pectoris; K21.9 Gastro-esophageal reflux disease without esophagitis; M19.90 Unspecified osteoarthritis, unspecified site; Z87.891 Personal history of nicotine dependence; Z91.041 Radiographic dye allergy status
CPT/HCPCS: 71045; 73502; 80048; 80053; 82948; 85027; 86850; 86900; 86901; 88309; 88342 TC; 94640; 94640 76; 94799; J0690; J1100; J1170; J1650; J1815; J1885; J2405; J2765; J3010; J7120; J7643; S0020